=== PATIENT | female | born 1995 | race African-American/Black ===

== ENCOUNTER 2022-12-02 10:30 | Emergency (ER) | payer SELFPAY ==
[~2022-12-02] VITALS: Ht 157.5 cm; Wt 95.3 kg
[2022-12-02 10:48] VITALS: TEMP 98.2; O2SAT 97
[2022-12-02 13:00] VITALS: BP 144/97; PULSE 82; RESP 18
[2022-12-02] MEDS ORDERED: AMOXICILLIN 500 MG CAPSULE PO ONE (13:00)
[2022-12-02] MEDS ORDERED: IBUPROFEN 600MG TABLET PO ONE (13:00)
[2022-12-02] MEDS ORDERED: AMOX-494 MT (13:03)
[2022-12-02] MEDS ORDERED: IBUP-2029 MT (13:03)
== END 2022-12-02 14:08 | disposition home or self-care (01) ==
LOC: ER 10:30
DX: K04.7 Periapical abscess without sinus (principal); R68.84 Jaw pain; Z98.890 Other specified postprocedural states
CPT/HCPCS: 99283